=== PATIENT | male | born 1940 | race Two or more races ===

== ENCOUNTER 2021-06-13 08:46 | Outpatient (CLI) | payer OTHER | END 2021-06-13 08:56 | disposition home or self-care (01) | LOC: LAB 08:46 | PROVIDERS: ATTEND Orthopaedic Surgery | DX: E55.9 Vitamin D deficiency, unspecified (principal); M85.9 Disorder of bone density and structure, unspecified; E56.1 Deficiency of vitamin K; E21.3 Hyperparathyroidism, unspecified; E88.9 Metabolic disorder, unspecified; M81.8 Other osteoporosis without current pathological fracture ==

== ENCOUNTER 2021-07-10 11:18 | Outpatient (CLI) | payer OTHER | END 2021-07-10 11:19 | disposition home or self-care (01) | LOC: RAD 11:18 | PROVIDERS: ATTEND Orthopaedic Surgery | DX: S72.012D Unspecified intracapsular fracture of left femur, subsequent encounter for closed fracture with routine healing (principal) ==

== ENCOUNTER 2021-07-12 14:25 | Outpatient (CLI) | payer OTHER | END 2021-07-12 14:47 | disposition home or self-care (01) | LOC: RAD 14:25 | PROVIDERS: ATTEND Orthopaedic Surgery | DX: S72.012D Unspecified intracapsular fracture of left femur, subsequent encounter for closed fracture with routine healing (principal) ==

== ENCOUNTER 2021-09-18 10:43 | Outpatient (CLI) | payer OTHER | END 2021-09-18 10:47 | disposition home or self-care (01) | LOC: RAD 10:43 | PROVIDERS: ATTEND Orthopaedic Surgery | DX: S72.02 Fracture of epiphysis (separation) (upper) of femur (principal) ==

== ENCOUNTER 2021-09-27 13:51 | Emergency (ER) | payer OTHER ==
[~2021-09-27] VITALS: Ht 167.6 cm; Wt 73.5 kg
[2021-09-27] MEDS ORDERED: CARBIDOPA-LEVO1 EA10 PO (14:03)
[2021-09-27] MEDS ORDERED: TAMSULOSIN HCL0.4 MG PO (14:03)
== END 2021-09-27 15:58 | disposition home or self-care (01) ==
LOC: ER 13:51
DX: Z48.02 Encounter for removal of sutures (principal)